=== PATIENT | male | born 1995 | race Native Hawaiian/Other Pacific Islander ===

== ENCOUNTER 2020-08-31 09:31 | Emergency (ER) | payer SELFPAY ==
[2020-08-31 17:43] VITALS: BP 124/77
--- NOTE | 2020-08-31 18:00 | XRay Report ---
CHEST 2 VIEWS INDICATION / CLINICAL INFORMATION: productive cough x 3months. COMPARISON: None available. FINDINGS: SUPPORT DEVICES: None. HEART / MEDIASTINUM: No significant abnormality. LUNGS / PLEURA: No significant pulmonary or pleural abnormality. No pneumothorax. ADDITIONAL FINDINGS: No significant additional findings. IMPRESSION: 1. No acute findings. Signer Name: Tomy Goldsmith MD Signed: 08/31/2020 5:55 PM Workstation Name: [id number]
--- NOTE | 2020-08-31 18:26 | Emergency Department Report ---
- General Chief Complaint: Upper Respiratory Infection Stated Complaint: CHEST PAIN/COUGH [id number] Time Seen by Provider: 08/31/20 16:32 Source: patient Mode of arrival: Ambulatory Limitations: No Limitations - History of Present Illness Initial Comments: Patient is a 25-year-old male presents emergency room with complaints of a cough that began 3 months ago. He states that occasionally he does have green mucus production. He states that after frequent coughing in the morning he has some chest discomfort but otherwise does not have any chest pain. He states when his symptoms first began he had a fever but he has not had a fever in approximately 2 months. He states that last month he went to get a COVID-19 test and it was negative. He denies any nausea, vomiting, diarrhea, shortness of breath, leg swelling. He denies any past medical history. No allergies to medications. He states he is a non-smoker. He denies any recent travel or known sick contacts. - Related Data Previous Rx's Medication Instructions Recorded Last Taken Type Acetaminophen/Codeine 1 tab PO Q6H PRN #5 tab 11/17/14 Unknown Rx [Acetaminophen-Codeine #3 TAB] Amoxicillin/K Clav Tab [Augmentin 1 tab PO BID #20 tablet 11/17/14 Unknown Rx 875MG] Benzonatate [Tessalon Perles] 100 mg PO Q8HR PRN #10 capsule 08/31/20 Unknown Rx Loratadine [Claritin] 10 mg PO DAILY #30 tablet 08/31/20 Unknown Rx guaiFENesin ER [Mucinex ER] 600 mg PO Q12H #14 tablet.er 08/31/20 Unknown Rx Allergies Allergy/AdvReac Type Severity Reaction Status Date / Time No Known Allergies Allergy Verified 11/17/14 13:59 ED Review of Systems ROS: Stated complaint: CHEST PAIN/COUGH [id number] Other details as noted in HPI Comment: All other systems reviewed and negative ED Past Medical Hx - Past Medical History Previous Medical History?: Yes Hx Psychiatric Treatment: Yes (schizophrenia) - Surgical History Past Surgical History?: No - Social History Smoking Status: Never Smoker Substance Use Type: None - Medications Home Medications: Home Medications Medication Instructions Recorded Confirmed Last Taken Type Acetaminophen/Codeine 1 tab PO Q6H PRN #5 tab 11/17/14 Unknown Rx [Acetaminophen-Codeine #3 TAB] Amoxicillin/K Clav Tab [Augmentin 1 tab PO BID #20 tablet 11/17/14 Unknown Rx 875MG] Benzonatate [Tessalon Perles] 100 mg PO Q8HR PRN #10 capsule 08/31/20 Unknown Rx Loratadine [Claritin] 10 mg PO DAILY #30 tablet 08/31/20 Unknown Rx guaiFENesin ER [Mucinex ER] 600 mg PO Q12H #14 tablet.er 08/31/20 Unknown Rx ED Physical Exam - General Limitations: No Limitations General appearance: alert, in no apparent distress - Head Head exam: Present: atraumatic, normocephalic - Eye Eye exam: Present: normal appearance - ENT ENT exam: Present: mucous membranes moist - Respiratory Respiratory exam: Present: normal lung sounds bilaterally. Absent: respiratory distress, wheezes, rales, rhonchi, stridor, chest wall tenderness, accessory muscle use, decreased breath sounds, prolonged expiratory - Cardiovascular Cardiovascular Exam: Present: regular rate, normal rhythm, normal heart sounds. Absent: systolic murmur, diastolic murmur, rubs, gallop - Neurological Exam Neurological exam: Present: alert, oriented X3 - Psychiatric Psychiatric exam: Present: normal affect, normal mood - Skin Skin exam: Present: warm, dry, intact ED Course Vital Signs 08/31/20 08/31/20 10:17 17:42 Temperature 98.1 F Pulse Rate 97 H 80 Respiratory 18 18 Rate Blood Pressure 139/80 124/77 [Right] O2 Sat by Pulse 98 98 Oximetry ED Medical Decision Making - Lab Data Vital Signs 08/31/20 08/31/20 10:17 17:42 Temperature 98.1 F Pulse Rate 97 H 80 Respiratory 18 18 Rate Blood Pressure 139/80 124/77 [Right] O2 Sat by Pulse 98 98 Oximetry - Radiology Data Radiology results: report reviewed Ordering Physician: RENETTA GRIMM Date of Service: 08/31/20 Procedure(s): XR chest routine 2V Accession Number(s): [id number] cc: RENETTA GRIMM Fluoro Time In Minutes: CHEST 2 VIEWS INDICATION / CLINICAL INFORMATION: productive cough x 3months. COMPARISON: None available. FINDINGS: SUPPORT DEVICES: None. HEART / MEDIASTINUM: No significant abnormality. LUNGS / PLEURA: No significant pulmonary or pleural abnormality. No pneumothorax. ADDITIONAL FINDINGS: No significant additional findings. IMPRESSION: 1. No acute findings. Signer Name: Tomy Goldsmith MD Signed: 08/31/2020 5:55 PM Workstation Name: [id number] Transcribed By: GREGORIO Dictated By: Tomy Goldsmith MD Electronically Authenticated By: Tomy Goldsmith MD Signed Date/Time: 08/31/201754 DD/ 54 TD/TT: - Medical Decision Making Patient is a 25-year-old male presents emergency room with complaints of a cough that began 3 months ago. He states that occasionally he does have green mucus production. He states that after frequent coughing in the morning he has some chest discomfort but otherwise does not have any chest pain. He states when his symptoms first began he had a fever but he has not had a fever in approximately 2 months. He states that last month he went to get a COVID-19 test and it was negative. He denies any nausea, vomiting, diarrhea, shortness of breath, leg swelling. He denies any past medical history. No allergies to medications. He states he is a non-smoker. He denies any recent travel or known sick contacts. Vitals are normal. Chest x-ray with no acute process. Breath sounds are clear bilaterally, no wheezing, no rales, no rhonchi, no respiratory distress. Symptoms could be related to allergies. Do not suspect pneumonia or acute bacterial bronchitis. Patient is PERC criteria negative for PE. Patient given prescription for Claritin, Mucinex, Tessalon Perles. Advised patient please take medication as prescribed. increase water intake. follow up with a primary care doctor. return to the emergency room for any new or worsening symptoms. - Differential Diagnosis URI, PNA, allergies, sinusitis, postnasal drip, GERD, bronchitis Critical care attestation.: If time is entered above; I have spent that time in minutes in the direct care of this critically ill patient, excluding procedure time. ED Disposition Clinical Impression: Cough Disposition: DC-01 TO HOME OR SELFCARE Is pt being admited?: No Does the pt Need Aspirin: No Condition: Stable Instructions: Cough, Adult, Allergies, Adult Additional Instructions: please take medication as prescribed. increase water intake. follow up with a primary care doctor. return to the emergency room for any new or worsening symptoms. Prescriptions: Loratadine [Claritin] 10 mg PO DAILY #30 tablet guaiFENesin ER [Mucinex ER] 600 mg PO Q12H #14 tablet.er Benzonatate [Tessalon Perles] 100 mg PO Q8HR PRN #10 capsule PRN Reason: cough Referrals: PRIMARY CAREMD [Primary Care Provider] - 2-3 Days JANAE COX MD [Staff Physician] - 2-3 Days [facility] [Provider Group] - 2-3 Days Forms: Work/School Release Form(ED) Time of Disposition: 18:23 Print Language: LUXEMBOURGER
== END 2020-08-31 18:51 | disposition home or self-care (01) ==
LOC: ED 09:31
DX: R05 Cough (principal)
CPT/HCPCS: 71046; 99283